=== PATIENT | male | born 1965 | race Caucasian/White ===

== ENCOUNTER 2018-01-17 17:38 | Emergency (ER) | payer OTHER ==
[~2018-01-17] VITALS: Ht 172.7 cm; Wt 79.4 kg
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
[2018-01-17] MEDS ORDERED: IV NS 0.9% 1,000 ML BAG IV ONE (18:00)
[2018-01-17] MEDS ORDERED: OLANZAPINE 10 MG VIAL IM ONE ×2 (18:00→18:29)
[2018-01-17] MEDS ORDERED: LORAZEPAM INJ 2 MG/ML VIAL IVP ONE (18:00)
[2018-01-17 18:19] LABS: BASOPHILS # (AUTO) 0.2 /CMM (0.0-0.2); BASOPHILS % (AUTO) 2.2 % (0.0-2.0); EOSINOPHILS % (AUTO) 2.7 % (0.0-6.0); HEMATOCRIT 39 % (39-51); HEMOGLOBIN 13.3 g/dL (13.5-17.5); LYMPHOCYTES # (AUTO) 1.3 /CMM (0.8-4.8); LYMPHOCYTES % (AUTO) 15.9 % (20.0-44.0); MEAN CORPUSCULAR HEMOGLOBIN 30 PG (26.0-33.0); MEAN CORPUSCULAR HGB CONC 34 g/dl (31.0-36.0); MEAN CORPUSCULAR VOLUME 87 fL (80-96); MONOCYTES # (AUTO) 0.7 /CMM (0.1-1.30); MONOCYTES % (AUTO) 8.6 % (2.0-12.0); NEUTROPHILS # (AUTO) 5.5 /CMM (1.8-8.9); NEUTROPHILS % (AUTO) 70.6 % (43.0-81.0); PLATELET COUNT (AUTO) 255 /CMM (150-450); RDW COEFFICIENT OF VARIATION 15.4 (11.5-15.0); RED BLOOD CELL COUNT(AUTO) 4.47 MIL/uL (4.5-6.0); WHITE BLOOD COUNT (AUTO) 7.9 K/uL (4.3-11.0)
[2018-01-17] MEDS ORDERED: LORAZEPAM INJ 2 MG/ML VIAL ONE (18:30)
[2018-01-17 18:32] LABS: CALCIUM, SERUM 8.8 mg/dL (8.5-10.1); CARBON DIOXIDE 26 mmol/L (21-32); CHLORIDE 105 mmol/L (98-107); CREATININE 0.9 mg/dL (0.6-1.3); GLUCOSE 113 mg/dL (74-106); SODIUM SERUM 142 mmol/L (136-145); UREA NITROGEN, BLOOD 11 mg/dL (7-18)
[2018-01-17 18:39] LABS: ALANINE AMINOTRANSFERASE 61 U/L (12-78); ALBUMIN 3.5 g/dL (3.4-5.0); ALCOHOL, BLOOD 15 mg/dL (0-0); ALKALINE PHOSPHATASE 108 U/L (46-116); ASPARTATE AMINOTRANSFERASE 55 U/L (15-37); BILIRUBIN,DIRECT 0.3 mg/dL (0.0-0.2); BILIRUBIN,TOTAL 0.7 mg/dL (0.2-1.0); TOTAL PROTEIN, SERUM 6.7 g/dL (6.4-8.2)
--- NOTE | 2018-01-17 18:40 | NUR ---
PT MEDICATED ORDERED URINE SAMPLE COLLECTED VIA CLEAN CATCH AND SENT TO LAB
[2018-01-17 18:48] LABS: ACETAMINOPHEN < 2 ug/ml (10-30); SALICYLATE 2.7 mg/dL (2.8-20.0)
--- NOTE | 2018-01-17 18:53 | NUR ---
URINE SENT TO LAB
--- NOTE | 2018-01-17 19:03 | NUR ---
Patient is resting comfortably in bed with eyes closed. Easily aroused. VSS
[2018-01-17 19:29] LABS: APPEARANCE,URINE Slightly Cloudy (CLEAR); BILIRUBIN,URINE SMALL (NEGATIVE); BLOOD, URINE Negative Ery/uL (NEGATIVE); COLOR,URINE Dark (YELLOW); KETONES,URINE Trace (NEGATIVE); LEUKOCYTE ESTERASE ,URINE Negative (NEGATIVE); NITRITE, URINE Negative (NEGATIVE); PH,URINE 6.5 (5.0-8.0); PROTEIN,URINE 30 mg/dl (NEGATIVE); UGLUCOSE Negative (NEGATIVE)
[2018-01-17 19:36] LABS: RBC,URINE NONE SEEN /HPF (0-2); WBC,URINE 0-2 /HPF (0-3)
[2018-01-17 19:37] LABS: BACTERIA,URINE Few /HPF (None Seen); SQUAMOUS EPITHELIAL CELL,UR Few /HPF (None Seen)
[2018-01-17] MEDS ORDERED: ACETAMINOPHEN ES 500 MG TABLET PO ONE (20:00)
[2018-01-17] MEDS ORDERED: ACETAMINOPHEN ES 500 MG TABLET ONE (20:04)
[2018-01-17 20:13] VITALS: BP 127/70
--- NOTE | 2018-01-17 20:14 | NUR ---
Patient discharged to home in stable condition. Written and verbal after care instructions given. Patient verbalizes understanding of instruction.IV removed. Catheter intact and site benign. Pressure and 4x4 applied to site. No bleeding noted.
== END 2018-01-17 20:16 | disposition home or self-care (01) ==
LOC: ER 17:42
DX: F29 Unspecified psychosis not due to a substance or known physiological condition (principal); T67.3XXA Heat exhaustion, anhydrotic, initial encounter; E86.0 Dehydration; F17.200 Nicotine dependence, unspecified, uncomplicated; Z85.07 Personal history of malignant neoplasm of pancreas; Z59.0 Homelessness; F43.10 Post-traumatic stress disorder, unspecified; Y04.8XXA Assault by other bodily force, initial encounter; Y93.89 Activity, other specified; Y92.512 Supermarket, store or market as the place of occurrence of the external cause; Y99.8 Other external cause status
CPT/HCPCS: 36415; 80048; 80076; 80305; 80329; 81001; 83690; 85025; 96372; 96374; 99284; A4606; G0480 ×2; J2060; J3490; J7030; Z7610; 81000-TC

== ENCOUNTER 2019-10-01 13:58 | Emergency (ER) | payer MEDICAID, OTHER ==
[~2019-10-01] VITALS: Ht 177.8 cm; Wt 74.8 kg
[2019-10-01 13:59] VITALS: BP 133/81
--- NOTE | 2019-10-01 14:17 | NUR ---
SEEN AND EXAMINED BY .
[2019-10-01] MEDS ORDERED: ACETAMINOPHEN ES 500 MG TABLET ONE (14:21)
--- NOTE | 2019-10-01 14:23 | NUR ---
REPLENISHMENT SPECIALIST AT BEDSIDE FOR XRAY.
[2019-10-01] MEDS ORDERED: ACETAMINOPHEN ES 500 MG TABLET PO ONE (14:30)
--- NOTE | 2019-10-01 15:17 | NUR ---
Patient given written and verbal discharge instructions. Patient verbalizes understanding of instructions. Patient is ambulatory with steady gait. Refuses offer of snf placement. Patient given list of available shelters in surrounding area.
== END 2019-10-01 15:19 | disposition home or self-care (01) ==
LOC: ER 13:58
DX: M25.512 Pain in left shoulder (principal); M25.551 Pain in right hip; R07.81 Pleurodynia; I10 Essential (primary) hypertension; Y09 Assault by unspecified means
CPT/HCPCS: 71100-TC; 72040-TC; 73030-TC; 73502

== ENCOUNTER 2019-10-25 03:35 | Emergency (ER) | payer OTHER ==
[~2019-10-25] VITALS: Ht 177.8 cm; Wt 65.8 kg
--- NOTE | 2019-10-25 03:40 | NUR ---
SEEN AND EXAMINED BY .
--- NOTE | 2019-10-25 03:45 | NUR ---
ER PHLEB AT BEDSIDE FOR BLOOD DRAW
--- NOTE | 2019-10-25 03:50 | NUR ---
SECURITY AT BEDSIDE FOR WANDING.
--- NOTE | 2019-10-25 04:00 | NUR ---
JELANI FROM [facility]. PT ER BED 7. AAOX4. NOT IN RESP DISTRESS. AMBULATORY. SMELLS OF ALCOHOL. BROUGHT IN FOR SUICIDAL IDEATION W/ PLAN TO CUT HIS JUGULAR AND FEMORAL ARTERY. PT DENIES HI. PT DENIES HALLUCINATION. PT DOES REPORT THAT HE FEELS EMOTIONAL. PT IS STRIPPED OFF CLOTHINGS AND BELONGINGS KEPT IN LOCKER LOCATED ON UTILITY ROOM. MD WAS AT BEDSIDE. BLOOD DRAWN BY PHLEB AT BEDSIDE. ORDERS RECEIEVED, NOTED AND CARRIED OUT. 1:1 SITTER WITH IN PT SIGHT. WILL DO CONSTANT VISUAL CHECK WELL.
[2019-10-25 04:17] LABS: BASOPHILS % (AUTO) 0.7 % (0.0-2.0); EOSINOPHILS % (AUTO) 5.4 % (0.0-6.0); HEMATOCRIT 46 % (39-51); HEMOGLOBIN 15.7 g/dL (13.5-17.5); LYMPHOCYTES # (AUTO) 2.3 /CMM (0.8-4.8); LYMPHOCYTES % (AUTO) 34.7 % (20.0-44.0); MEAN CORPUSCULAR HGB CONC 34 g/dl (31.0-36.0); MEAN CORPUSCULAR VOLUME 89 fL (80-96); MONOCYTES # (AUTO) 0.5 /CMM (0.1-1.30); MONOCYTES % (AUTO) 7.8 % (2.0-12.0); NEUTROPHILS # (AUTO) 3.4 /CMM (1.8-8.9); NEUTROPHILS % (AUTO) 51.4 % (43.0-81.0); PLATELET COUNT (AUTO) 253 /CMM (150-450); RED BLOOD CELL COUNT(AUTO) 5.13 MIL/uL (4.5-6.0); WHITE BLOOD COUNT (AUTO) 6.5 K/uL (4.3-11.0)
[2019-10-25 04:20] LABS: CALCIUM, SERUM 8.9 mg/dL (8.5-10.1); CREATININE 0.7 mg/dL (0.6-1.3); POTASSIUM 3.4 mmol/L (3.5-5.1)
[2019-10-25 04:26] LABS: ALBUMIN 4.4 g/dL (3.4-5.0); BILIRUBIN,DIRECT 0.1 mg/dL (0.0-0.2); BILIRUBIN,TOTAL 0.3 mg/dL (0.2-1.0); SALICYLATE 4.8 mg/dL (2.8-20.0); TOTAL PROTEIN, SERUM 8.4 g/dL (6.4-8.2)
--- NOTE | 2019-10-25 04:28 | NUR ---
urine collected and sent to stat lab
[2019-10-25 04:55] LABS: APPEARANCE,URINE SL CLOUDY (CLEAR); BILIRUBIN,URINE SMALL (NEGATIVE); BLOOD, URINE NEGATIVE Ery/uL (NEGATIVE); COLOR,URINE YELLOW (YELLOW); KETONES,URINE NEGATIVE (NEGATIVE); LEUKOCYTE ESTERASE ,URINE NEGATIVE (NEGATIVE); NITRITE, URINE NEGATIVE (NEGATIVE); PROTEIN,URINE NEGATIVE (NEGATIVE); UGLUCOSE NEGATIVE (NEGATIVE)
[2019-10-25 05:02] LABS: BACTERIA,URINE None seen /HPF (None Seen); RBC,URINE 0-2 /HPF (0-2); SQUAMOUS EPITHELIAL CELL,UR Rare /HPF (None Seen); WBC,URINE 0-2 /HPF (0-3)
--- NOTE | 2019-10-25 05:12 | NUR ---
PT IN BED SLEEPING. NAD NOTED.
--- NOTE | 2019-10-25 07:30 | NUR ---
PT IN BED SLEEPING NAD NOTED. PT ENDORSED TO [facility] ELY
--- NOTE | 2019-10-25 09:43 | NUR ---
radha plascencia called for eval
--- NOTE | 2019-10-25 13:10 | NUR ---
UA SENT TO LAB
--- NOTE | 2019-10-25 14:00 | NUR ---
ARTISTS' BOOKING REPRESENTATIVE JHONATAN AT BEDSIDE.
--- NOTE | 2019-10-25 14:09 | NUR ---
PATIENT DENIES BEING SUICIDAL. REFUSED GOING TO [facility]. STATES "HE WANTS TO GO"
--- NOTE | 2019-10-25 18:26 | NUR ---
Patient given written and verbal discharge instructions. Patient verbalizes understanding of instructions. Patient is ambulatory with steady gait. Refuses offer of alf placement. Patient given list of available shelters in surrounding area. All belongings returned to patient, name band removed. Tap card provided. left in proper clothing wearing pants, rubber shoes and jacket.
[2019-10-25 18:28] VITALS: BP 130/70
== END 2019-10-25 18:28 | disposition home or self-care (01) ==
LOC: ER 03:36
DX: R45.851 Suicidal ideations (principal); F17.210 Nicotine dependence, cigarettes, uncomplicated; I10 Essential (primary) hypertension; F43.10 Post-traumatic stress disorder, unspecified; Z59.0 Homelessness
CPT/HCPCS: 36415; 80048; 80076; 80305; 80307 ×2; 80329; 81001; 85025; 99285; 99406; G0480; 81000-TC

== ENCOUNTER 2020-09-26 03:52 | Emergency (ER) | payer MEDICAID, OTHER ==
[~2020-09-26] VITALS: Ht 188 cm; Wt 81.6 kg
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
--- NOTE | 2020-09-26 04:23 | NUR ---
[employer] AT BEDSIDE SPEAKING TO PT
[2020-09-26] MEDS ORDERED: HYDROCODONE/APAP 5/325MG TABLET ONE (04:27)
[2020-09-26] MEDS ORDERED: HYDROCODONE/APAP 5/325MG TABLET PO ONE (04:30)
[2020-09-26] MEDS ORDERED: RISP4TAB70 PO (05:27)
--- NOTE | 2020-09-26 06:39 | NUR ---
CALLED K[facility]LA REGARDING FOLOW UP FOR READING OF IMAGES.
--- NOTE | 2020-09-26 06:59 | NUR ---
AWAITING FOR XRAY RESULTS
[2020-09-26 08:21] VITALS: BP 135/81
--- NOTE | 2020-09-26 08:21 | NUR ---
Patient discharged to home in stable condition. Written and verbal after care instructions given. Patient verbalizes understanding of instruction.
== END 2020-09-26 08:21 | disposition home or self-care (01) ==
LOC: ER 03:54
DX: R51.9 Headache, unspecified (principal); M54.2 Cervicalgia; M25.511 Pain in right shoulder; R07.81 Pleurodynia; I10 Essential (primary) hypertension; F43.10 Post-traumatic stress disorder, unspecified; Z59.0 Homelessness; Z79.899 Other long term (current) drug therapy; Y04.0XXA Assault by unarmed brawl or fight, initial encounter; Y93.89 Activity, other specified; Y92.89 Other specified places as the place of occurrence of the external cause; Y99.8 Other external cause status
CPT/HCPCS: 70450-TC; 71045-TC; 72125-TC; 73030-TC